=== PATIENT | female | born 1935 | race Caucasian/White ===

== ENCOUNTER 2016-11-16 18:44 | Observation (INO) ==
[2016-11-16 19:19] LABS: Basophils # 0.1 K/mcL (0.0-0.2); Basophils % 0.6 %; Eosinophils # 0.1 K/mcL (0.0-0.6); Eosinophils % 1.2 %; Hematocrit 38.5 % (35.3-44.9); Hemoglobin 12.5 g/dL (11.5-15.4); Immature Granulocytes % 1.2 % (0-4); Lymphocytes # 2.6 K/mcL (0.6-4.6); Lymphocytes % 26.5 %; Mean Corpuscular HGB Conc 32.5 g/dL (31.6-35.5); Mean Corpuscular Hemoglobin 28.9 pg (28.0-33.3); Mean Corpuscular Volume 88.9 fL (83.0-100.0); Mean Platelet Volume 9.1 fL (9.4-12.4); Monocytes # 0.6 K/mcL (0.0-1.3); Neutrophils # 6.2 K/mcL (1.6-8.9); Platelet Count 240 K/mcL (140-400); Red Blood Count 4.33 M/mcL (3.82-4.97); Red Cell Distribution Width 15.7 % (11.5-14.5); Segmented Neutrophils % 64.5 %
[2016-11-16 19:24] LABS: INR 1.4; Prothrombin Time 15.5 Seconds (9.4-12.1)
[2016-11-16 19:27] LABS: Activated Partial Thrombo Time 34.5 Seconds (26.0-36.0)
[2016-11-16] MEDS ORDERED: *HR* HYDROmorphone (PF) 1 MG/ML SYRINGE IVP ONE (19:27)
[2016-11-16] MEDS ORDERED: Ondansetron 4 MG/2 ML VIAL IVP ONE (19:27)
--- NOTE | 2016-11-16 19:33 | Emergency Department Note ---
Disposition Clinical Impression: Chest pain Disposition: Admitted As Inpatient Condition: Fair Time of Disposition: 23:27 Chest Pain HPI - General Chief Complaint: ED Chest Pain Stated Complaint: Chest Pain Time Seen by Provider: 11/16/16 19:05 Source: patient, family Mode of arrival: private vehicle Limitations: no limitations Vital Signs Reviewed: Yes Nursing Notes Reviewed: Yes - History of Present Illness HPI Narrative: 81-year-old female patient presents to the emergency department complaining of chest pain. Patient states that she has had intermittent chest pain for the last 2-3 days, however states that the discomfort became more severe within the last 3 hours. Patient describes her chest pain as tightness and heaviness. She also notes that she has been feeling increasingly weak over the last several days and has noted that she becomes short of breath with any exertion. She denies any fever, chills, nausea or vomiting. She does state that she has had similar chest pain in the past but nothing this severe. Currently she states that she is pain-free, however complains of back pain but this is a chronic issue for her. She denies any recent trauma, falls, head injury, loss of consciousness, dizziness or lightheadedness. Pt complaint: chest pain Onset (ago): hour(s) (3) Duration: intermittent, now resolved Onset: during rest, during exertion Pain Location: substernal Severity scale (1-10): 8 Pain Radiation: none Improves with: nothing Worsens with: nothing Associated symptoms: Reports: dyspnea. Denies: nausea, vomiting, diaphoresis, sense of impending doom Treatments prior to arrival chest pain: none - Related Data Home Medications Medication Instructions Recorded Confirmed Aclidinium [place] [Tudorza 1 puff IH BID 10/13/16 11/01/16 Pressair] Biotin 5 mg PO DAILY 10/13/16 11/01/16 Cholecalciferol (D-3) [Vitamin D] 2,000 unit PO DAILY 10/13/16 11/01/16 Digoxin [Lanoxin] 0.125 mg PO Q48H 10/13/16 11/01/16 Diltiazem CD (24hr) [Cardizem CD] 240 mg PO DAILY 10/13/16 11/01/16 Docusate [Colace] 200 mg PO DAILY 10/13/16 11/01/16 Esomeprazole Magnesium [Nexium] 40 mg PO DAILY 10/13/16 11/01/16 Ferrous Sulfate [Iron] 325 mg PO BID 10/13/16 11/01/16 Fluticasone Propionate Nasal 1 spray NS BID 10/13/16 11/01/16 [Flonase] Glimepiride [Amaryl] 1 mg PO QAM 10/13/16 11/01/16 Levalbuterol Tartrate [Xopenex Hfa] 2 puff IH Q6H PRN 10/13/16 11/01/16 Levothyroxine Sodium [Levo-T] 175 mcg PO DAILY 10/13/16 11/01/16 Lidocaine Patch [Lidoderm 5% patch] 1 patch TP DAILY PRN 10/13/16 11/01/16 Magnesium Oxide [Magnesium] 500 mg PO BID 10/13/16 11/01/16 Metoprolol Succinate 100 mg PO DAILY 10/13/16 11/01/16 Morphine Sulfate [Arymo ER] 30 mg PO Q12H PRN 10/13/16 11/01/16 Multivit-Min/FA/Lycopen/Lutein 1 tab PO DAILY 10/13/16 11/01/16 [Centrum Silver Tablet] OxyCODONE/APAP 5/325 [Percocet 1 tab PO DAILY PRN 10/13/16 11/01/16 5/325 MG] Potassium Chloride [K-Tab ER] 20 meq PO DAILY 10/13/16 11/01/16 Rivaroxaban [Xarelto] 20 mg PO DAILY 10/13/16 11/01/16 Rosuvastatin Calcium [Crestor] 5 mg PO DAILY 10/13/16 11/01/16 Sertraline [Zoloft] 100 mg PO DAILY 10/13/16 11/01/16 Spironolactone [Aldactone] 12.5 mg PO BID 10/13/16 11/01/16 Tizanidine HCl 2 - 4 mg PO TID PRN 10/13/16 11/01/16 Torsemide [Demadex] 40 mg PO QPM 10/13/16 11/01/16 Torsemide [Demadex] 60 mg PO QAM 10/13/16 11/01/16 Vitamin B Complex [B Complex] 1 tab PO DAILY 10/13/16 11/01/16 Previous Rx's Medication Instructions Recorded methylPREDNISolone [Medrol] 4 mg PO TAPER #21 tablet 11/01/16 Allergies Allergy/AdvReac Type Severity Reaction Status Date / Time aspirin [ASA] Allergy Mild Gastrointestinal Verified 11/01/16 19:47 Upset ciprofloxacin [From Cipro] Allergy Unknown Rash Verified 11/01/16 19:47 codeine Allergy Unknown Hives Verified 11/01/16 19:47 Penicillins Allergy Unknown Rash Verified 11/01/16 19:47 Sulfa (Sulfonamide Allergy Unknown Rash Verified 11/01/16 19:47 Antibiotics) tetanus and diphtheria Allergy Unknown Swelling Verified 11/01/16 19:47 toxoids of [Tetanus&Diphtheria Toxoid] Lip/Tongue/Throat doxycycline Allergy See Verified 11/01/16 19:47 Comments fluticasone furoate AdvReac Nausea Verified 11/01/16 19:47 [From Breo Ellipta] vilanterol AdvReac Nausea Verified 11/01/16 19:47 [From Breo Ellipta] All systems ED: reviewed and negative except as stated. Constitutional: Denies: fever, chills Cardiovascular: Reports: chest pain. Denies: palpitations Respiratory: Reports: dyspnea. Denies: cough, wheezes Gastrointestinal: Denies: abdominal pain, nausea, vomiting Musculoskeletal: Reports: back pain (Chronic). Denies: neck pain Integumentary: Denies: rash, abrasion, lesions Neurological: Denies: headache Psychiatric: Denies: anxiety, depression, suicidal thoughts, homicidal thoughts Endocrine: Reports: fatigue Chest Pain PMH - Past Medical History Medical history: Reports: arthritis, asthma, atrial fibrillation, CHF, diabetes , fibromyalgia, GERD, hyperlipidemia, hypertension, thyroid disease Surgical history: Reports: cholecystectomy Psychiatric history: Reports: depression TIRE AND LUBE TECHNICIAN history: Reports: no TIRE AND LUBE TECHNICIAN history - Social History Smoking Status: Never smoker Alcohol use: Reports: none Drug use: Reports: none Physical Exam - General Limitations: no limitations General appearance: alert, in no apparent distress - Head Head exam: atraumatic, normocephalic, normal inspection - Eye Eye exam: Present: normal appearance, PERRL - Neck Neck exam: Present: normal inspection, full ROM, trachea midline - Chest Chest inspection: Present: normal inspection, symmetric chest wall rise. Absent : tenderness - Respiratory Respiratory exam: Present: normal lung sounds bilaterally. Absent: respiratory distress - Cardiovascular Cardiovascular exam: Present: regular rate, normal rhythm, normal heart sounds - Abdominal Exam Abdominal exam: Present: soft, Non-Tender, normal bowel sounds - Extremities Exam Extremities exam: Present: normal inspection, full ROM, pedal edema (Mild, chronic and normal for patient.). Absent: tenderness - Expanded Lower Extremity Exam Gait: not tested/not observed - Back Exam Back exam: Present: normal inspection, full ROM - Neurological Exam Neurological exam: Present: alert, oriented X3 - Psychiatric Psychiatric exam: Present: normal affect, normal mood Course - Consultations Consultation #1: I discussed admission with the Hospitalist, Dr. Seo, he accepts the patient. Patient continues to deny any chest pain, however does state that she has back pain which is chronic and is requesting pain medication. Patient appears to be resting comfortably in no acute distress. Vital signs within normal limits. I informed the patient about admission to the hospital and we are currently awaiting transport. Vital Signs Temperature 98.3 F 11/16/16 18:55 Pulse Rate 93 11/16/16 18:55 Respiratory Rate 18 11/16/16 18:55 Blood Pressure 119/85 11/16/16 18:55 O2 Sat by Pulse Oximetry 95 11/16/16 18:55 Temperature 98.3 F 11/16/16 18:55 Pulse Rate 92 11/16/16 21:20 Respiratory Rate 16 11/16/16 21:20 Blood Pressure 98/64 11/16/16 21:20 O2 Sat by Pulse Oximetry 94 11/16/16 21:20 Oxygen Delivery Oxygen Delivery Room Air Chest Pain - Lab Data Result diagrams: 11/16/16 19:09 11/16/16 19:09 Lab Results 11/16/16 11/16/16 11/16/16 Range/Units 19:09 19:09 19:09 WBC 9.6 (4.3-11.1) K/mcL RBC 4.33 (3.82-4.97) M/mcL Hgb 12.5 (11.5-15.4) g/dL Hct 38.5 (35.3-44.9) % MCV 88.9 (83.0-100.0) fL MCH 28.9 (28.0-33.3) pg MCHC 32.5 (31.6-35.5) g/dL RDW 15.7 H (11.5-14.5) % Plt Count 240 (140-400) K/mcL MPV 9.1 L (9.4-12.4) fL Immature Gran % 1.2 (0-4) % Seg Neutrophils % 64.5 % Lymphocytes % 26.5 % Monocytes % 6.0 % Eosinophils % 1.2 % Basophils % 0.6 % Neutrophils # 6.2 (1.6-8.9) K/mcL Lymphocytes # 2.6 (0.6-4.6) K/mcL Monocytes # 0.6 (0.0-1.3) K/mcL Eosinophils # 0.1 (0.0-0.6) K/mcL Basophils # 0.1 (0.0-0.2) K/mcL PT 15.5 H (9.4-12.1) Seconds INR 1.4 APTT 34.5 (26.0-36.0) Seconds D-Dimer 738 H (0-500) ng/mLFEU Sodium (136-145) mEq/L Potassium (3.5-4.5) mEq/L Chloride (98-109) mEq/L Carbon Dioxide (19-29) mEq/L BUN (7-20) mg/dL Creatinine (0.57-1.11) mg/dL Est GFR ( Amer) (> 60) Est GFR (Non-Af Amer) (> 60) BUN/Creatinine Ratio (6-26) Glucose (70-99) mg/dL Calculated Osmolality (280-300) Calcium (8.6-10.8) mg/dL Total Bilirubin (0.2-1.2) mg/dL AST (5-34) Units/L ALT (0-55) Units/L Alkaline Phosphatase (38-126) Units/L Troponin I 0.00 (0-0.03) ng/mL B-Natriuretic Peptide (0-100) pg/mL Serum Total Protein (6.0-8.3) g/dL Albumin (3.5-5.0) g/dL Globulin (2.4-3.5) g/dL Albumin/Globulin Ratio (1.1-2.2) Digoxin (0.8-2.0) ng/mL 11/16/16 11/16/16 Range/Units 19:09 19:09 WBC (4.3-11.1) K/mcL RBC (3.82-4.97) M/mcL Hgb (11.5-15.4) g/dL Hct (35.3-44.9) % MCV (83.0-100.0) fL MCH (28.0-33.3) pg MCHC (31.6-35.5) g/dL RDW (11.5-14.5) % Plt Count (140-400) K/mcL MPV (9.4-12.4) fL Immature Gran % (0-4) % Seg Neutrophils % % Lymphocytes % % Monocytes % % Eosinophils % % Basophils % % Neutrophils # (1.6-8.9) K/mcL Lymphocytes # (0.6-4.6) K/mcL Monocytes # (0.0-1.3) K/mcL Eosinophils # (0.0-0.6) K/mcL Basophils # (0.0-0.2) K/mcL PT (9.4-12.1) Seconds INR APTT (26.0-36.0) Seconds D-Dimer (0-500) ng/mLFEU Sodium 139 (136-145) mEq/L Potassium 3.4 L (3.5-4.5) mEq/L Chloride 99 (98-109) mEq/L Carbon Dioxide 29 (19-29) mEq/L BUN 15 (7-20) mg/dL Creatinine 1.19 H (0.57-1.11) mg/dL Est GFR ( Amer) 53 L (> 60) Est GFR (Non-Af Amer) 44 L (> 60) BUN/Creatinine Ratio 13 (6-26) Glucose 113 H (70-99) mg/dL Calculated Osmolality 290 (280-300) Calcium 9.5 (8.6-10.8) mg/dL Total Bilirubin 0.4 (0.2-1.2) mg/dL AST 34 (5-34) Units/L ALT 34 (0-55) Units/L Alkaline Phosphatase 140 H (38-126) Units/L Troponin I (0-0.03) ng/mL B-Natriuretic Peptide 129 H (0-100) pg/mL Serum Total Protein 7.2 (6.0-8.3) g/dL Albumin 3.7 (3.5-5.0) g/dL Globulin 3.5 (2.4-3.5) g/dL Albumin/Globulin Ratio 1.1 (1.1-2.2) Digoxin 0.4 L (0.8-2.0) ng/mL Heart Score - Score History: Moderately Suspicious EKG: Normal Age: Greater than 65 Risk Factors: Equal/Greater than 3 risk factor or history of atherosclerotic disease Troponin: Less than normal limit HEART Score Total: 5 Attestation Statement - Attestation Attestation: I examined this patient and my medical decision-making was reviewed with the STULL INSTALLER/PA/Advanced Practice Nurse/Resident Physician. I agree with the documented findings, disposition and treatment plan as described except to the extent set forth below. [id number] time provided Patient complains of chest pain. Labs reviewed by me. EKG reviewed by me. D- dimer elevated age adjusted his within acceptable range. She appears in no acute distress on exam. Family at bedside
[2016-11-16] MEDS ORDERED: Nitroglycerin 0.4 MG TAB.SUBL SL PRN (19:35)
[2016-11-16] MEDS ORDERED: Aspirin 81 MG TAB.CHEW PO ONE (19:36)
[2016-11-16 20:02] LABS: Calcium 9.5 mg/dL (8.6-10.8); Potassium 3.4 mEq/L (3.5-4.5)
[2016-11-16 20:16] LABS: Albumin 3.7 g/dL (3.5-5.0); Albumin/Globulin Ratio 1.1 (1.1-2.2); Bilirubin,Total 0.4 mg/dL (0.2-1.2); Globulin 3.5 g/dL (2.4-3.5); Total Protein 7.2 g/dL (6.0-8.3)
[2016-11-16 21:12] LABS: Digoxin 0.4 ng/mL (0.8-2.0)
[2016-11-16] MEDS ORDERED: *HR* HYDROmorphone 2 MG/ML SYRINGE IVP ONE (23:17)
[2016-11-17] MEDS ORDERED: Naloxone 0.4 MG/ML INJ IVP PRN (01:54)
[2016-11-17] MEDS ORDERED: Levalbuterol 1 PUFF INHALER IH PRN (01:56)
[2016-11-17] MEDS ORDERED: *HR* OxyCODONE/APAP 5/325 TABLET PO PRN (01:56)
[2016-11-17] MEDS ORDERED: *HR* Digoxin 0.125 MG TABLET PO SCH (02:00)
[2016-11-17] MEDS ORDERED: *HR* Dextrose 50 % in Water (Syg) 50 ML SYRINGE IVP PRN (02:08)
[2016-11-17] MEDS ORDERED: D5% in Water 1,000 ML IVC PRN (02:08)
[2016-11-17] MEDS ORDERED: Dextrose Gel 15 GM PO PRN ×2 (02:08)
--- NOTE | 2016-11-17 02:10 | Internal Med History&Physical ---
Date of Encounter: 11/17/16 Time of Encounter: 02:09 Assessment and Plan (1) Chest pain Current visit: Yes Status: Acute Age adjusted d-dimer is in the normal range; troponin is negative, and CXR showed no acute process. Trend troponins - if negative; pharmacological stress test. Qualifiers: Chest pain type: unspecified Qualified Code(s): R07.9 - Chest pain, unspecified (2) Atrial fibrillation Current visit: Yes Status: Chronic Rate controlled. Continue anticoagulation with xarelto Qualifiers: Atrial fibrillation type: unspecified Qualified Code(s): I48.91 - Unspecified atrial fibrillation (3) Diabetes mellitus Current visit: Yes Status: Acute Start sliding scale insulin Qualifiers: Diabetes mellitus type: type 2 Diabetes mellitus complication status: with unspecified complications Diabetes mellitus mcc insulin use: without exterminator termite use Qualified Code(s): E11.8 - Type 2 diabetes mellitus with unspecified complications (4) Hypothyroidism Current visit: Yes Status: Chronic Continue synthroid Qualifiers: Hypothyroidism type: unspecified Qualified Code(s): E03.9 - Hypothyroidism , unspecified (5) Hypertension Current visit: Yes Status: Chronic Continue home medications Qualifiers: Hypertension type: essential hypertension Qualified Code(s): I10 - Essential (primary) hypertension (6) Chronic pain Current visit: Yes Status: Chronic Continue home medications Qualifiers: Chronic pain type: chronic pain syndrome Qualified Code(s): G89.4 - Chronic pain syndrome Internal Medicine - H&P: HPI Chief complaint: chest pain Admitted From: Emergency Dept Plans for Post Hospital Care: Home History of present illness: Ms. Hernandez is a 81 year old female With h/o asthma / COPD, atrial fibrillation on anticoagulation with xarelto, CHF, diabetes, fibromyalgia, GERD, hyperlipidemia, hypertension, hypothyroidism, chronic back pain - presents to the emergency department with history of intermittent substernal chest pain for about 4 days. Pain feels like heaviness, unrelated to exertion and goes to the back. She reports nausea but no vomiting. She denies shortness of breath, cough, expectoration, fever, chills, abdominal pain, dysuria, hematuria or changes in bowel habits. She reports recent history of shingles on the left lumbar area, which is causing pain. She is evaluated in the emergency department age adjusted d-dimer is in the normal range; troponin is negative, and CXR showed no acute process. She is admitted to the hospitalist service for further management. Past Med Surg Social Fam HX - Past Medical History Medical history: arthritis, asthma, atrial fibrillation, CHF, diabetes, fibromyalgia, GERD, hyperlipidemia, hypertension, thyroid disease Psychiatric history: depression - Past Surgical History Surgical History: cholecystectomy - Social History Smoking Status: Never smoker Smokeless Tobacco Status: No Alcohol use: none Drug use: none - Family History Father Adopted: [place]: [place] Family Member Ethnicity: Non- Living Status: Age at : 73 Cause of : HEART PROBLEMS Hx Family Cardiac Disorders: Yes Hx Family Respiratory Disorders: No Hx Family Cancer: No Hx Family GI Disorders: No Hx Family Genitourinary Disorders: No Hx Family Endocrine Disorder: Yes (DM) Hx Family Musculoskeletal Disorders: No Hx Family Neuromuscular Disorders: No Hx Family Neurologic Disorders: No Hx Family HEENT Disorders: No Hx Family Autoimmune Disorders: No Hx Family Reproductive Disorders: No Hx Family Psychosocial Disorders: No Hx Family Medical Disorders: No Internal Medicine - H&P: Meds Aclidinium [place] [Tudorza Pressair] 1 puff IH BID 10/13/16 [History] Biotin 5 mg PO DAILY 10/13/16 [History] Cholecalciferol (D-3) [Vitamin D] 2,000 unit PO DAILY 10/13/16 [History] Digoxin [Lanoxin] 0.125 mg PO Q48H 10/13/16 [History] Diltiazem CD (24hr) [Cardizem CD] 240 mg PO DAILY 10/13/16 [History] Docusate [Colace] 100 mg PO BID 10/13/16 [History] Esomeprazole Magnesium [Nexium] 40 mg PO DAILY 10/13/16 [History] Ferrous Sulfate [Iron] 325 mg PO BID 10/13/16 [History] Fluticasone Propionate Nasal [Flonase] 1 spray NS BID 10/13/16 [History] Glimepiride [Amaryl] 1 mg PO QAM 10/13/16 [History] Levalbuterol Tartrate [Xopenex Hfa] 2 puff IH Q6H PRN 10/13/16 [History] Levothyroxine Sodium [Levo-T] 175 mcg PO DAILY 10/13/16 [History] Lidocaine Patch [Lidoderm 5% patch] 1 patch TP DAILY PRN 10/13/16 [History] Magnesium Oxide [Magnesium] 500 mg PO BID 10/13/16 [History] Metoprolol Succinate 100 mg PO DAILY 10/13/16 [History] Morphine Sulfate [Arymo ER] 30 mg PO Q12H PRN 10/13/16 [History] Multivit-Min/FA/Lycopen/Lutein [Centrum Silver Tablet] 1 tab PO DAILY 10/13/16 [ History] OxyCODONE/APAP 5/325 [Percocet 5/325 MG] 1 tab PO DAILY PRN 10/13/16 [History] Potassium Chloride [K-Tab ER] 20 meq PO TID 10/13/16 [History] Rivaroxaban [Xarelto] 20 mg PO DAILY 10/13/16 [History] Rosuvastatin Calcium [Crestor] 5 mg PO DAILY 10/13/16 [History] Sertraline [Zoloft] 100 mg PO DAILY 10/13/16 [History] Spironolactone [Aldactone] 12.5 mg PO BID 10/13/16 [History] Torsemide [Demadex] 40 mg PO QPM 10/13/16 [History] Torsemide [Demadex] 60 mg PO QAM 10/13/16 [History] Vitamin B Complex [B Complex] 1 tab PO DAILY 10/13/16 [History] Allergies aspirin [ASA] Allergy (Mild, Verified 11/01/16 19:47) Gastrointestinal Upset ciprofloxacin [From Cipro] Allergy (Unknown, Verified 11/01/16 19:47) Rash codeine Allergy (Unknown, Verified 11/01/16 19:47) Hives Penicillins Allergy (Unknown, Verified 11/01/16 19:47) Rash Sulfa (Sulfonamide Antibiotics) Allergy (Unknown, Verified 11/01/16 19:47) Rash tetanus and diphtheria toxoids [Tetanus&Diphtheria Toxoid] Allergy (Unknown, Verified 11/01/16 19:47) Swelling of Lip/Tongue/Throat doxycycline Allergy (Verified 11/01/16 19:47) See Comments fluticasone furoate [From Breo Ellipta] Adverse Reaction (Verified 11/01/16 19: 47) Nausea vilanterol [From Breo Ellipta] Adverse Reaction (Verified 11/01/16 19:47) Nausea All Systems PM: A 10-system review of systems was performed and is negative for pertinent findings except as documented above in the HPI. - Constitutional Vitals: Temp Pulse Resp BP Pulse Ox 98.3 F 82 16 106/64 92 11/17/16 00:25 11/17/16 00:25 11/17/16 00:25 11/17/16 00:25 11/17/16 00:25 Exam: General: Not in acute distress at the time of my evaluation HEENT: Oral mucosa is moist. No conjunctival palor or scleral icterus Neck: No obvious neck swellings Lungs: Clear to auscultation Cardiac: Irregular rhythm. No significant murmurs Abdomen: obese, non tender. Bowel sounds present Genitourinary: No diaz catheter Neurological: Alert and oriented. No gross localizing deficits Psych: Not aggressive or agitated Extremities: Mild leg edema Skin: No generalized rash Internal Med - H&P Results - Labs CBC & Chem 7: 11/16/16 19:09 11/16/16 19:09 - EKG Data -: EKG Interpreted by Myself - EKG Data EKG comments: Atrial fibrillation - rate controlled; RBBB 11/17/16 05:29 - Impressions ITS Impressions Chest X-Ray 11/16/16 18:58 IMPRESSION: No acute process. Redemonstration of a large hiatal hernia. This was also seen on a chest CT from 09/13/2014. D/ / 11/16/2016 21:29:51 Enma Stone MD / eli Interpreting Provider: Enma Stone MD - VTE Reasons for not Prescribing Prophylaxis: Not indicated-Anticoagulated or INR therapeutic
[2016-11-17 03:35] LABS: Chol/HDL Ratio 5.1 (0-4.9); Magnesium 1.8 mg/dL (1.6-2.6)
[2016-11-17] MEDS ORDERED: Regadenoson 0.4 MG/5 ML SYRINGE IVP ONE (06:10)
[2016-11-17] MEDS ORDERED: *HR* Rivaroxaban 10 MG TABLET PO SCH (09:00)
[2016-11-17] MEDS: Insulin LISPRO 300 UNITS/3 ML VIAL SQ SCH ×3 (09:45→16:22)
[2016-11-17] MEDS: Torsemide 20 MG TABLET PO SCH (09:47)
[2016-11-17] MEDS: Metoprolol XL (24 HR) Succ 50 MG TAB.ER.24H PO SCH (09:47)
[2016-11-17] MEDS: Spironolactone 25 MG TABLET PO SCH ×2 (09:47→20:23)
[2016-11-17] MEDS: Magnesium Oxide 400 MG TABLET PO SCH ×2 (09:47→20:23)
[2016-11-17] MEDS: Fluticasone Propionate Nasal 50 MCG/SPRAY BOTTLE NS SCH ×2 (09:48→20:23)
[2016-11-17] MEDS: Vitamin B Complex/Vit C/Vit E 1 EACH TABLET PO SCH (09:48)
[2016-11-17] MEDS: Multivit/Ca/Min/Fe/FA 1 TAB TABLET PO SCH (09:48)
[2016-11-17] MEDS: Diltiazem CD (24hr) 240 MG CAPSULE PO SCH (09:48)
--- NOTE | 2016-11-17 11:28 | Internal Med Progress Note ---
Date of Encounter: 11/17/16 Time of Encounter: 09:30 - Assessment and plan (1) Chest pain Current Visit: Yes Status: Acute Assessment and plan: Patient describes heavy substernal chest pain that is very intermittent for roughly 4 days prior to admission. Currently chest pain-free, but does report continued lower back pain. She does describe her current chest/epigastric pain that radiates to her back similar to prior episodes of pancreatitis that she has had in the past. EKG shows no acute changes, trops x2 have been negative so far. Patient appears hemodynamically stable. Patient underwent 1st part of cardiac stress test this morning, this will be a 2 day test NPO after midnight Will obtain lipase continue to monitor via cardiac telemetry Qualifiers: Chest pain type: unspecified Qualified Code(s): R07.9 - Chest pain, unspecified (2) Atrial fibrillation Current Visit: Yes Status: Chronic Assessment and plan: Heart rate-controlled currently, no rapid ventricular response Continue patient home medications, including: Digoxin 0.125 mg by mouth every 48 hours Xarelto 20 mg by mouth daily Patient on diltiazem and metoprolol as below Qualifiers: Atrial fibrillation type: unspecified Qualified Code(s): I48.91 - Unspecified atrial fibrillation (3) Diabetes mellitus Current Visit: Yes Status: Acute Assessment and plan: Hold patient oral diabetic medications Start patient on low-dose insulin sliding scale Qualifiers: Diabetes mellitus type: type 2 Diabetes mellitus complication status: with unspecified complications Diabetes mellitus mcfp insulin use: without gaggerman use Qualified Code(s): E11.8 - Type 2 diabetes mellitus with unspecified complications (4) Hypothyroidism Current Visit: Yes Status: Chronic Assessment and plan: Continue home dose of levothyroxine of 175 g daily Qualifiers: Hypothyroidism type: unspecified Qualified Code(s): E03.9 - Hypothyroidism , unspecified (5) Chronic pain Current Visit: Yes Status: Chronic Assessment and plan: Continue home medications as below, including: Lidoderm patches By mouth morphine 30 mg every 12 hours when necessary Percocet 5/325 one tab by mouth daily when necessary Qualifiers: Chronic pain type: chronic pain syndrome Qualified Code(s): G89.4 - Chronic pain syndrome (6) Hypertension Current Visit: Yes Status: Chronic Assessment and plan: Continue home medications as below, including: Diltiazem 240 mg daily Metoprolol succinate 100 mg daily Spironolactone 12.5 mg by mouth twice a day Qualifiers: Hypertension type: essential hypertension Qualified Code(s): I10 - Essential (primary) hypertension (7) DVT prophylaxis Current Visit: Yes Status: Acute Assessment and plan: Continue home Xarelto - Subjective Interval history: Patient seen after having her stress test this morning, she denies having any chest pain at this time. She does report that she is having significant back pain, both in her spine and in her low left side, where she was recently diagnosed with shingles. She reports that the chest pain that she was heavy was a heavy feeling in the center of her chest and epigastric region that would radiate to her back. She reports that it was a similar sensation to when she had pacreatitis previously. She denies having any nausea/vomiting or fever, she does report having chills. - Constitutional Vitals: Temp Pulse Resp BP Pulse Ox 98.5 F 80 17 116/70 94 11/17/16 11:19 11/17/16 11:19 11/17/16 11:19 11/17/16 11:19 11/17/16 11:19 Exam: General: Cooperative, pleasant, no acute distress, alert and oriented 3, answers questions appropriately HEENT: Normocephalic, atraumatic, neck supple, sclera anicteric, EOMI, oral mucosa moist, no orophargeal erythema or exudates Respiratory: No accessory muscle usage, clear to auscultation bilaterally, no wheezes/rhonchi/rales appreciated Cardiovascular: Irregular rhythm, no murmurs/rubs/gallops/clicks appreciated, substernal pain reproducible with palpation GI/abdominal: Nondistended, mild epigastric tenderness, normal bowel sounds, no peritoneal signs Extremities: No calf tenderness, noncyanotic, no pedal edema appreciated, warm, lower extremity pulses palpable and symmetrical Neurological: Alert and oriented 3, no facial droop, no focal deficits Skin: Dry, intact, rash from healing shingles in distribution in lower lumbar area on left Internal Medicine: Result - Labs CBC & Chem 7: 11/16/16 19:09 11/16/16 19:09 Labs: Cardiac Enzymes 11/17/16 Range/Units 02:58 Troponin I 0.02 (0-0.03) ng/mL - ABG Interpretation ABG results: PT/INR, D-dimer PT 15.5 Seconds (9.4-12.1) H 11/16/16 19:09 D-Dimer 738 ng/mLFEU (0-500) H 11/16/16 19:09 - VTE Reasons for not Prescribing Prophylaxis: Not indicated-Anticoagulated or INR therapeutic Consult Discharge Plan - Plan Referrals: Clifton Ferro DO [Primary Care Provider] -
[2016-11-17] MEDS: *HR* Morphine Sulfate SR (12 HR) 30 MG TABLET.ER PO PRN (11:42)
[2016-11-17] MEDS ORDERED: NON-FORMULARY MEDICATION 1 EACH EACH TP PRN (15:17)
[2016-11-17] MEDS ORDERED: Torsemide 20 MG TABLET PO SCH (17:00)
--- NOTE | 2016-11-17 17:57 | Electrocardiograph Report ---
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
[2016-11-17] MEDS ORDERED: Insulin LISPRO 300 UNITS/3 ML VIAL SQ SCH (21:00)
[2016-11-18] MEDS: *HR* Morphine Sulfate SR (12 HR) 30 MG TABLET.ER PO PRN ×2 (03:03→15:29)
[2016-11-18 05:31] LABS: Calcium 9.2 mg/dL (8.6-10.8); Potassium 3.1 mEq/L (3.5-4.5)
[2016-11-18] MEDS: Insulin LISPRO 300 UNITS/3 ML VIAL SQ SCH ×2 (08:54→11:55)
[2016-11-18] MEDS: Torsemide 20 MG TABLET PO SCH (09:13)
[2016-11-18] MEDS: Diltiazem CD (24hr) 240 MG CAPSULE PO SCH (09:13)
[2016-11-18] MEDS: Spironolactone 25 MG TABLET PO SCH (09:13)
[2016-11-18] MEDS: Metoprolol XL (24 HR) Succ 50 MG TAB.ER.24H PO SCH (09:15)
[2016-11-18] MEDS: Vitamin B Complex/Vit C/Vit E 1 EACH TABLET PO SCH (09:15)
[2016-11-18] MEDS: Magnesium Oxide 400 MG TABLET PO SCH (09:15)
[2016-11-18] MEDS: Multivit/Ca/Min/Fe/FA 1 TAB TABLET PO SCH (09:15)
[2016-11-18] MEDS: Fluticasone Propionate Nasal 50 MCG/SPRAY BOTTLE NS SCH (09:15)
--- NOTE | 2016-11-18 12:06 | Nuclear Medicine Stress Report ---
Regadenoson Nuclear 2 Name: Germania Hernandez Date of Study: 11/17/2016 Date: 1935 Ht: 61.0 in Medical Record#: [id number] Age: 81 Wt: 203.0 lb Gender: Female Order #: [id number] Location: [facility] Room: [facility] Supervising Provider: Alma Finch CNP Reading Physician: Edinson Mariano MD, [facility] Ordering Physician: Mary Barkley CNP Primary Care Physician: Clifton Ferro DO Stress Technologist: Hever Mazariegos CRT Cloth Coverer: Ludwig Hernandez Indications: Chest Pain Impression: Patient was in atrial fibrillation throughout the examination. Gated LVEF > 70%. Perfusion imaging was negative for ischemia or infarct. History: Hypertension Diabetes Hypercholesteremia Stress Test Summary: Stress Test Type: Pharmacologic Baseline Information: Initial Heart Rate: 84 Blood Pressure: 122/70 Stress Information: Test Terminated Due to (primary): As per protocol Maximum Blood Pressure: 134/68 Maximum Heart Rate: 97 Percent Maximum Heart Rate Achieved: 70 Double Product: [id number] Symptoms: No chest symptoms Nuclear Summary: SPECT myocardial perfusion imaging using Tc99m Sestamibi given intravenously was performed at rest and following cardiac stress testing. The resting images were obtained following initial dose of 34.5 mCi. Following stress an additional dose of 32.3 mCi was given at peak exercise or 30 seconds post regadenoson infusion. Findings: Stress Note * Resting ECG demonstrated atrial fibrillation. * Patient was in atrial fibrillation throughout the examination. * Patient had no chest pain during stress. * No significant ECG changes with regadenoson. Hemodynamic responses * Normal hemodynamic responses to pharmacologic stress. Study Quality * Study quality is good. Gated EF > 70% * Gated LVEF > 70%. Left Ventricle * The left ventricle is not dilated. * Normal Segmental Perfusion in rest. * Normal segmental perfusion in stress. TID * No evidence of transient ischemic dilatation. Updated by Edinson Mariano MD, [facility] on 11/18/2016 12:02:12 PM electronically signed on 11/18/2016 12:02:35 PM with status of Final
[2016-11-18 15:27] VITALS: BP 126/66
--- NOTE | 2016-11-18 16:46 | Discharge Summary ---
Date of Encounter: 11/18/16 Time of Encounter: 16:43 - Discharge Diagnosis (1) Chest pain Priority: Primary Status: Acute Comments: Stress test was negative Qualifiers: Chest pain type: unspecified Qualified Code(s): R07.9 - Chest pain, unspecified (2) Atrial fibrillation Priority: Secondary Status: Chronic Qualifiers: Atrial fibrillation type: unspecified Qualified Code(s): I48.91 - Unspecified atrial fibrillation (3) Diabetes mellitus Priority: Secondary Status: Acute Qualifiers: Diabetes mellitus type: type 2 Diabetes mellitus complication status: with unspecified complications Diabetes mellitus remote computer terminal operator insulin use: without remote computer terminal operator use Qualified Code(s): E11.8 - Type 2 diabetes mellitus with unspecified complications (4) Hypothyroidism Priority: Secondary Status: Chronic Qualifiers: Hypothyroidism type: unspecified Qualified Code(s): E03.9 - Hypothyroidism , unspecified (5) Hypertension Priority: Secondary Status: Chronic Qualifiers: Hypertension type: essential hypertension Qualified Code(s): I10 - Essential (primary) hypertension (6) Shingles Priority: Secondary Status: Acute Comments: Continue morphine and Percocet as needed as the patient could not tolerate Lyrica, was not able to tolerate gabapentin in the past and prefers not to try amitriptyline due to the side effects Qualifiers: Herpes zoster complications: without complications Qualified Code(s): B02.9 - Zoster without complications - Discharge Medications Home Medications: Aclidinium [place] [Tudorza Pressair] 1 puff IH BID 10/13/16 [History] Biotin 5 mg PO DAILY 10/13/16 [History] Cholecalciferol (D-3) [Vitamin D] 2,000 unit PO DAILY 10/13/16 [History] Digoxin [Lanoxin] 0.125 mg PO Q48H 10/13/16 [History] Diltiazem CD (24hr) [Cardizem CD] 240 mg PO DAILY 10/13/16 [History] Docusate [Colace] 100 mg PO BID 10/13/16 [History] Esomeprazole Magnesium [Nexium] 40 mg PO DAILY 10/13/16 [History] Ferrous Sulfate [Iron] 325 mg PO BID 10/13/16 [History] Fluticasone Propionate Nasal [Flonase] 1 spray NS BID 10/13/16 [History] Glimepiride [Amaryl] 1 mg PO QAM 10/13/16 [History] Levalbuterol Tartrate [Xopenex Hfa] 2 puff IH Q6H PRN 10/13/16 [History] Levothyroxine Sodium [Levo-T] 175 mcg PO DAILY 10/13/16 [History] Lidocaine Patch [Lidoderm 5% patch] 1 patch TP DAILY PRN 10/13/16 [History] Magnesium Oxide [Magnesium] 500 mg PO BID 10/13/16 [History] Metoprolol Succinate 100 mg PO DAILY 10/13/16 [History] Morphine Sulfate [Arymo ER] 30 mg PO Q12H PRN 10/13/16 [History] Multivit-Min/FA/Lycopen/Lutein [Centrum Silver Tablet] 1 tab PO DAILY 10/13/16 [ History] OxyCODONE/APAP 5/325 [Percocet 5/325 MG] 1 tab PO DAILY PRN 10/13/16 [History] Potassium Chloride [K-Tab ER] 20 meq PO TID 10/13/16 [History] Rivaroxaban [Xarelto] 20 mg PO DAILY 10/13/16 [History] Rosuvastatin Calcium [Crestor] 5 mg PO DAILY 10/13/16 [History] Sertraline [Zoloft] 100 mg PO DAILY 10/13/16 [History] Spironolactone [Aldactone] 12.5 mg PO BID 10/13/16 [History] Torsemide [Demadex] 40 mg PO QPM 10/13/16 [History] Torsemide [Demadex] 60 mg PO QAM 10/13/16 [History] Vitamin B Complex [B Complex] 1 tab PO DAILY 10/13/16 [History] Lidocaine 1 appl TP AD 11/17/16 [History] Allergies/Adverse Reactions: Allergies aspirin [ASA] Allergy (Mild, Verified 11/01/16 19:47) Gastrointestinal Upset ciprofloxacin [From Cipro] Allergy (Unknown, Verified 11/01/16 19:47) Rash codeine Allergy (Unknown, Verified 11/01/16 19:47) Hives Penicillins Allergy (Unknown, Verified 11/01/16 19:47) Rash Sulfa (Sulfonamide Antibiotics) Allergy (Unknown, Verified 11/01/16 19:47) Rash tetanus and diphtheria toxoids [Tetanus&Diphtheria Toxoid] Allergy (Unknown, Verified 11/01/16 19:47) Swelling of Lip/Tongue/Throat doxycycline Allergy (Verified 11/01/16 19:47) See Comments fluticasone furoate [From Breo Ellipta] Adverse Reaction (Verified 11/01/16 19: 47) Nausea vilanterol [From Breo Ellipta] Adverse Reaction (Verified 11/01/16 19:47) Nausea Procedures/tests Complete & Pending: Procedures Performed prior 72 hours Category Date Time Status NM vinod perf SPECT multi [NM] Routine Exams 11/17/16 01:56 Taken SP pharm nuclear stress Routine Y 11/17/16 07:00 Completed Date of admission: 11/16/16 22:28 Primary care physician: Clifton Ferro DO - Patient Status Disposition: Home, Self-Care Condition: Fair Overall status at discharge: patient is back to baseline - Discharge Instructions Follow Up With: Clifton Ferro DO [Primary Care Provider] - 11/19/16 1:15 pm Additional Instructions: Follow with primary care physician within the next 7 days - Diet and Activity Activity: increase activity as tolerated Diet: diabetic diet Hospital course: Ms. 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 Pain felt like heaviness, unrelated to exertion and goes to the back. She reported nausea but no vomiting. She denied shortness of breath, cough, expectoration, fever, chills, abdominal pain, dysuria, hematuria or changes in bowel habits. She reported recent history of shingles on the left lumbar area, which is causing pain. CXR showed no acute process. The patient underwent a 2 day stress test which was negative for any ischemia. Troponins have been negative. Safe to be discharged home - Time Spent with Patient Total time spent providing and/or coordinating discharge services: Greater than 30 minutes (40 min) - Constitutional Vitals: Temp Pulse Resp BP Pulse Ox 97.6 F 100 18 126/66 96 11/18/16 15:21 11/18/16 15:21 11/18/16 15:21 11/18/16 15:21 11/18/16 15:21 General appearance: Present: A&O X 3 - Head Head exam: Present: atraumatic, normocephalic - Eye Eye exam: Present: PERRL, conjuntiva pink, sclera anicteric Pupils: Present: PERRL - Neck Neck exam general surgery: Present: supple, trachea midline. Absent: lymphadenopathy - Respiratory Respiratory exam: Present: CTAB. Absent: accessory muscle use, rales, rhonchi, wheezes - Cardiovascular Cardiovascular exam: Present: RRR, +S1, +S2. Absent: diastolic murmur, gallop, rubs, systolic murmur - GI/Abdominal GI/Abdominal exam: Present: normal bowel sounds, soft, no peritoneal signs. Absent: distended, tenderness - Extremities Exam Extremities exam: Present: warm, radial pulses palpable and symetrical. Absent : calf tenderness, cyanotic, pedal edema - Neurological Exam Neurological exam: Present: CN II-XII intact, oriented X3, no focal deficits. Absent: pronater drift, facial droop, speech deficit - Skin Skin exam: Present: dry. Absent: intact (Left lumbothoracic lesions compatible with shingles) - VTE Reasons for not Prescribing Prophylaxis: Not indicated-Anticoagulated or INR therapeutic
[2016-11-18] MEDS ORDERED: *HR* Rivaroxaban 15 MG TABLET PO SCH (17:00)
== END 2016-11-18 17:57 | disposition home or self-care (01) ==
LOC: EMEROO 18:44 → 3BNU 18:44 → SUATTDRO 22:28 → 3BNU 11-17 00:05
PROVIDERS: ADMIT Internal Medicine; ATTEND Internal Medicine

== ENCOUNTER 2021-12-12 22:13 | Inpatient (IN) ==
[2021-12-13] MEDS ORDERED: Dextrose Gel 15 GM/37.5 ML TUBE PO PRN ×2 (04:05)
[2021-12-13] MEDS ORDERED: D5% in Water 1,000 ML IVC PRN (04:05)
[2021-12-13] MEDS ORDERED: *HR* Dextrose 50 % in Water (Syg) 50 ML SYRINGE IVP PRN (04:05)
[2021-12-13] MEDS ORDERED: Naloxone 0.4 MG/ML INJ IVP PRN (04:16)
[2021-12-13 05:24] LABS: Hematocrit 21.6 % (35.3-44.9); Hemoglobin 6.5 g/dL (11.5-15.4); Mean Corpuscular HGB Conc 30.1 g/dL (31.6-35.5); Mean Corpuscular Hemoglobin 29.1 pg (28.0-33.3); Mean Corpuscular Volume 96.9 fL (83.0-100.0); Platelet Count 218 K/mcL (140-400); Red Blood Count 2.23 M/mcL (3.82-4.97); Red Cell Distribution Width 15.9 % (11.5-14.5); White Blood Count 4.3 K/mcL (4.3-11.1)
[2021-12-13] MEDS: Insulin LISPRO 300 UNITS/3 ML VIAL SUBQ SCH ×5 (05:28→20:44)
[2021-12-13 05:34] LABS: INR 1.3; Prothrombin Time 14.4 Seconds (9.4-12.1)
[2021-12-13 05:43] LABS: Activated Partial Thrombo Time 33.1 Seconds (26.0-36.0); BUN/Creatinine Ratio 24 (6-26); Blood Urea Nitrogen 44 mg/dL (8-23); Calcium 8.6 mg/dL (8.6-10.3); Carbon Dioxide 32 mEq/L (23-29); Chloride 102 mEq/L (98-107); Glucose 110 mg/dL (70-105); Osmolality,Calculated 304 (280-300); Potassium 3.7 mEq/L (3.5-5.1); Sodium 141 mEq/L (136-145); eGFR For African Americans 31 (> 60); eGFR For Non-African Americans 26 (> 60)
[2021-12-13] MEDS: Acetaminophen 325 MG TABLET PO PRN ×2 (06:07→18:52)
[2021-12-13 06:15] LABS: Folate > 22.3 ng/mL (3.0-16.0); Vitamin B12 > 1500 pg/mL (250-1100)
[2021-12-13 08:46] LABS: % Iron Saturation 13 % (15-50); Chol/HDL Ratio 3.7 (0-4.9); Cholesterol 99 mg/dL (< 200); HDL Cholesterol 27 mg/dL (40-59); Iron 34 mcg/dL (50-170); LDL Cholesterol,Calculated 45 mg/dL (< 100); Magnesium 2.2 mg/dL (1.6-2.6); Transferrin 190 mg/dL (203-362); Triglycerides 137 mg/dL (< 150)
[2021-12-13 08:47] LABS: Troponin I < 0.03 ng/mL (< 0.04)
[2021-12-13 09:00] LABS: Thyroid Stimulating Hormone 1.609 mcIU/mL (0.340-5.600)
[2021-12-13 09:06] LABS: Ferritin 105 ng/mL (10-120)
[2021-12-13] MEDS: Torsemide 20 MG TABLET PO SCH ×2 (09:59→17:48)
[2021-12-13] MEDS: Metoprolol XL (24 HR) Succ 50 MG TAB.ER.24H PO SCH ×2 (10:00→21:52)
[2021-12-13] MEDS: Sacubitril/Valsartan 49/51 MG 1 TABLET PO SCH ×2 (10:00→21:51)
[2021-12-13 10:11] LABS: Estimated Average Glucose 103 mg/dl; Hemoglobin A1C 5.2 %
[2021-12-13] MEDS: Budesonide/Formoterol 160/4.5 1 PUFF INH IH SCH ×2 (10:20→22:04)
[2021-12-13] MEDS: Levalbuterol Neb 1.25 MG/3 ML IH SCH ×3 (10:20→22:03)
[2021-12-13] MEDS: cefTRIAXone 1,000 MG in 0.9 % Sodium Chloride Mini Bag 100 ML IVPB SCH (10:32)
[2021-12-13] MEDS: Aspirin Enteric Coated 81 MG Tablet PO SCH (10:48)
[2021-12-13] MEDS: *HR* Digoxin 0.125 MG TABLET PO SCH (10:49)
[2021-12-13] MEDS ORDERED: *HR* Rivaroxaban 10 MG TABLET PO SCH (17:00)
[2021-12-13 17:55] LABS: Hematocrit 30.6 % (35.3-44.9)
[2021-12-13 17:56] LABS: Hemoglobin 9.6 g/dL (11.5-15.4)
[2021-12-13] MEDS ORDERED: Acetaminophen IV 1,000 MG/100 ML BAG IVPB ONE (20:55)
[2021-12-14 01:36] LABS: Hematocrit 25.3 % (35.3-44.9); Hemoglobin 8.1 g/dL (11.5-15.4); Mean Corpuscular Hemoglobin 30.2 pg (28.0-33.3); Mean Corpuscular Volume 94.4 fL (83.0-100.0); Mean Platelet Volume 9.7 fL (9.4-12.4); Platelet Count 194 K/mcL (140-400); Red Blood Count 2.68 M/mcL (3.82-4.97); Red Cell Distribution Width 15.9 % (11.5-14.5); White Blood Count 5.2 K/mcL (4.3-11.1)
[2021-12-14 01:57] LABS: Calcium 8.8 mg/dL (8.6-10.3); Potassium 3.4 mEq/L (3.5-5.1)
[2021-12-14] MEDS: Levalbuterol Neb 1.25 MG/3 ML IH SCH ×4 (04:22→22:00)
[2021-12-14 05:18] LABS: Hematocrit 29.6 % (35.3-44.9); Hemoglobin 8.9 g/dL (11.5-15.4)
[2021-12-14] MEDS ORDERED: Acetaminophen IV 1,000 MG/100 ML BAG IVPB ONE (06:28)
[2021-12-14] MEDS: Insulin LISPRO 300 UNITS/3 ML VIAL SUBQ SCH ×4 (07:39→21:38)
[2021-12-14 08:17] LABS: Hematocrit 29.6 % (35.3-44.9); Hemoglobin 9.3 g/dL (11.5-15.4)
[2021-12-14] MEDS ORDERED: Morphine Sulfate Immed Rel 15 MG TABLET PO SCH (09:00)
[2021-12-14] MEDS: Budesonide/Formoterol 160/4.5 1 PUFF INH IH SCH ×2 (09:54→22:00)
[2021-12-14] MEDS ORDERED: *HR* OxyCODONE/APAP 5/325 TABLET PO ONE (09:56)
[2021-12-14] MEDS: Metoprolol XL (24 HR) Succ 50 MG TAB.ER.24H PO SCH ×2 (10:14→20:58)
[2021-12-14] MEDS: Aspirin Enteric Coated 81 MG Tablet PO SCH (10:14)
[2021-12-14] MEDS: Sacubitril/Valsartan 49/51 MG 1 TABLET PO SCH ×2 (10:14→20:58)
[2021-12-14] MEDS: Torsemide 20 MG TABLET PO SCH ×2 (10:17→18:21)
[2021-12-14] MEDS: cefTRIAXone 1,000 MG in 0.9 % Sodium Chloride Mini Bag 100 ML IVPB SCH (10:18)
[2021-12-14 10:28] LABS: Hematocrit 27.6 % (35.3-44.9); Hemoglobin 8.6 g/dL (11.5-15.4)
[2021-12-14] MEDS: *HR* Rivaroxaban 15 MG TABLET PO SCH (18:21)
[2021-12-14] MEDS: Morphine Sulfate ER (12 HR) 15 MG TABLET.ER PO SCH (18:21)
[2021-12-14] MEDS: Ondansetron 4 MG/2 ML VIAL IVP PRN (21:02)
[2021-12-14] MEDS: Acetaminophen 325 MG TABLET PO PRN (22:12)
[2021-12-15] MEDS: Levalbuterol Neb 1.25 MG/3 ML IH SCH ×4 (04:04→22:13)
[2021-12-15] MEDS: Morphine Sulfate ER (12 HR) 15 MG TABLET.ER PO SCH ×2 (05:24→17:50)
[2021-12-15] MEDS: Insulin LISPRO 300 UNITS/3 ML VIAL SUBQ SCH ×4 (07:37→20:33)
[2021-12-15 09:29] LABS: Hemoglobin 8.6 g/dL (11.5-15.4); Mean Corpuscular HGB Conc 30.7 g/dL (31.6-35.5); Mean Corpuscular Volume 97.6 fL (83.0-100.0); Mean Platelet Volume 9.9 fL (9.4-12.4); Platelet Count 213 K/mcL (140-400); Red Blood Count 2.87 M/mcL (3.82-4.97); Red Cell Distribution Width 15.9 % (11.5-14.5); White Blood Count 6.4 K/mcL (4.3-11.1)
[2021-12-15 09:54] LABS: Calcium 8.9 mg/dL (8.6-10.3); Potassium 3.2 mEq/L (3.5-5.1)
[2021-12-15] MEDS: Metoprolol XL (24 HR) Succ 50 MG TAB.ER.24H PO SCH ×2 (10:01→20:29)
[2021-12-15] MEDS: Sacubitril/Valsartan 49/51 MG 1 TABLET PO SCH ×2 (10:01→20:30)
[2021-12-15] MEDS: Torsemide 20 MG TABLET PO SCH ×2 (10:23→17:50)
[2021-12-15] MEDS: Aspirin Enteric Coated 81 MG Tablet PO SCH (10:23)
[2021-12-15] MEDS: *HR* Digoxin 0.125 MG TABLET PO SCH (10:24)
[2021-12-15] MEDS: calcitrioL 0.25 MCG CAPSULE PO SCH (10:24)
[2021-12-15] MEDS: cefTRIAXone 1,000 MG in 0.9 % Sodium Chloride Mini Bag 100 ML IVPB SCH (10:25)
[2021-12-15] MEDS: Budesonide/Formoterol 160/4.5 1 PUFF INH IH SCH ×2 (10:56→22:13)
[2021-12-15] MEDS: DAPTOmycin 500 MG in 0.9 % Sodium Chloride 100 ML IVPB SCH (12:20)
[2021-12-15] MEDS: *HR* Rivaroxaban 15 MG TABLET PO SCH (17:50)
[2021-12-15] MEDS: Magnesium Oxide 400 MG TABLET PO SCH (20:29)
[2021-12-16] MEDS: Levalbuterol Neb 1.25 MG/3 ML IH SCH ×4 (03:50→20:43)
[2021-12-16] MEDS: Morphine Sulfate ER (12 HR) 15 MG TABLET.ER PO SCH ×3 (04:45→18:25)
[2021-12-16] MEDS: Insulin LISPRO 300 UNITS/3 ML VIAL SUBQ SCH ×4 (07:22→21:06)
[2021-12-16] MEDS ORDERED: Spironolactone 25 MG TABLET PO SCH (09:00)
[2021-12-16] MEDS: Budesonide/Formoterol 160/4.5 1 PUFF INH IH SCH ×2 (09:01→20:43)
[2021-12-16] MEDS: Sacubitril/Valsartan 49/51 MG 1 TABLET PO SCH ×2 (09:44→21:05)
[2021-12-16] MEDS: Mirabegron [Myrbetriq] 50 MG Tab.Er.24h PO SCH (09:45)
[2021-12-16] MEDS: Metoprolol XL (24 HR) Succ 50 MG TAB.ER.24H PO SCH ×2 (09:45→21:06)
[2021-12-16] MEDS: Loratadine 10 MG TABLET PO SCH (10:00)
[2021-12-16] MEDS: Magnesium Oxide 400 MG TABLET PO SCH ×2 (10:00→21:06)
[2021-12-16] MEDS: calcitrioL 0.25 MCG CAPSULE PO SCH (10:00)
[2021-12-16] MEDS: Aspirin Enteric Coated 81 MG Tablet PO SCH (10:00)
[2021-12-16] MEDS: Vitamin B Complex/Vit C/Vit E 1 EACH TABLET PO SCH (10:00)
[2021-12-16] MEDS: Cholecalciferol (D-3) 1,000 UNIT (25MCG) TABLET PO SCH (10:01)
[2021-12-16] MEDS: Torsemide 20 MG TABLET PO SCH ×2 (10:07→17:01)
[2021-12-16 10:12] LABS: Basophils % 0.7 %; Eosinophils # 0.1 K/mcL (0.0-0.6); Eosinophils % 1.7 %; Hemoglobin 8.5 g/dL (11.5-15.4); Immature Granulocytes % 1.2 % (0-4); Lymphocytes % 16.7 %; Mean Corpuscular HGB Conc 30.4 g/dL (31.6-35.5); Mean Corpuscular Hemoglobin 29.5 pg (28.0-33.3); Mean Corpuscular Volume 97.2 fL (83.0-100.0); Mean Platelet Volume 9.9 fL (9.4-12.4); Monocytes # 0.5 K/mcL (0.0-1.3); Monocytes % 7.7 %; Neutrophils # 4.2 K/mcL (1.6-8.9); Platelet Count 204 K/mcL (140-400); Red Blood Count 2.88 M/mcL (3.82-4.97); Red Cell Distribution Width 15.8 % (11.5-14.5); White Blood Count 5.9 K/mcL (4.3-11.1)
[2021-12-16 10:32] LABS: Albumin 3.3 g/dL (3.5-5.7); Albumin/Globulin Ratio 1.2 (1.1-2.2); Bilirubin,Total 0.5 mg/dL (0.3-1.0); Calcium 9.1 mg/dL (8.6-10.3); Globulin 2.7 g/dL (2.4-3.5); Potassium 3.5 mEq/L (3.5-5.1)
[2021-12-16] MEDS: Ondansetron 4 MG/2 ML VIAL IVP PRN (11:51)
[2021-12-16] MEDS: *HR* Rivaroxaban 15 MG TABLET PO SCH (17:02)
[2021-12-17 03:14] LABS: Basophils % 0.8 %; Eosinophils % 1.8 %; Hematocrit 28.7 % (35.3-44.9); Hemoglobin 8.8 g/dL (11.5-15.4); Immature Granulocytes % 0.8 % (0-4); Lymphocytes # 0.8 K/mcL (0.6-4.6); Lymphocytes % 13.1 %; Mean Corpuscular HGB Conc 30.7 g/dL (31.6-35.5); Mean Corpuscular Hemoglobin 29.8 pg (28.0-33.3); Mean Corpuscular Volume 97.3 fL (83.0-100.0); Mean Platelet Volume 10.2 fL (9.4-12.4); Monocytes # 0.4 K/mcL (0.0-1.3); Monocytes % 6.9 %; Neutrophils # 4.8 K/mcL (1.6-8.9); Platelet Count 210 K/mcL (140-400); Red Blood Count 2.95 M/mcL (3.82-4.97); Red Cell Distribution Width 15.9 % (11.5-14.5); Segmented Neutrophils % 76.6 %; White Blood Count 6.2 K/mcL (4.3-11.1)
[2021-12-17 03:15] LABS: Basophils # 0.1 K/mcL (0.0-0.2); Eosinophils # 0.1 K/mcL (0.0-0.6)
[2021-12-17 03:30] LABS: Albumin 3.5 g/dL (3.5-5.7); Albumin/Globulin Ratio 1.3 (1.1-2.2); Bilirubin,Total 0.5 mg/dL (0.3-1.0); Calcium 9.7 mg/dL (8.6-10.3); Globulin 2.8 g/dL (2.4-3.5); Potassium 3.8 mEq/L (3.5-5.1); Total Protein 6.3 g/dL (6.4-8.9)
[2021-12-17] MEDS: Levalbuterol Neb 1.25 MG/3 ML IH SCH ×2 (04:24→10:23)
[2021-12-17] MEDS: Morphine Sulfate ER (12 HR) 15 MG TABLET.ER PO SCH (05:23)
[2021-12-17 07:40] VITALS: TEMP 98.2
[2021-12-17] MEDS: Mirabegron [Myrbetriq] 50 MG Tab.Er.24h PO SCH (07:50)
[2021-12-17] MEDS ORDERED: *HR* OxyCODONE/APAP 5/325 TABLET PO PRN (08:01)
[2021-12-17] MEDS ORDERED: Metoprolol XL (24 HR) Succ 50 MG TAB.ER.24H PO SCH (09:00)
[2021-12-17] MEDS ORDERED: Sacubitril/Valsartan 24/26 MG 1 TABLET PO SCH (09:00)
[2021-12-17] MEDS: Insulin LISPRO 300 UNITS/3 ML VIAL SUBQ SCH ×3 (09:40→16:43)
[2021-12-17] MEDS: DAPTOmycin 500 MG in 0.9 % Sodium Chloride 100 ML IVPB SCH (09:40)
[2021-12-17] MEDS: Budesonide/Formoterol 160/4.5 1 PUFF INH IH SCH (10:21)
[2021-12-17] MEDS ORDERED: Levalbuterol Neb 1.25 MG/3 ML IH PRN (10:21)
[2021-12-17] MEDS: Cholecalciferol (D-3) 1,000 UNIT (25MCG) TABLET PO SCH (10:28)
[2021-12-17] MEDS: calcitrioL 0.25 MCG CAPSULE PO SCH (10:29)
[2021-12-17] MEDS: *HR* Digoxin 0.125 MG TABLET PO SCH (10:30)
[2021-12-17] MEDS: Vitamin B Complex/Vit C/Vit E 1 EACH TABLET PO SCH (10:31)
[2021-12-17] MEDS: Aspirin Enteric Coated 81 MG Tablet PO SCH (10:32)
[2021-12-17] MEDS: Loratadine 10 MG TABLET PO SCH (10:32)
[2021-12-17] MEDS: Torsemide 20 MG TABLET PO SCH ×2 (11:04→17:03)
[2021-12-17] MEDS: Magnesium Oxide 400 MG TABLET PO SCH (11:07)
[2021-12-17 12:30] LABS: Influenza A PCR Negative (Negative); Influenza B PCR Negative (Negative); Resp. Syncytial Virus PCR Negative (Negative); SARS-CoV-2 by PCR (In House) Negative (Negative)
[2021-12-17 15:06] VITALS: BP 103/66; PULSE 87; O2SAT 96
[2021-12-17 15:06] LABS: Alpha 2 Globulin (PEP) 0.86 g/dL (0.48-1.05); Beta Globulin (PEP) 0.68 g/dL (0.48-1.10)
[2021-12-17 15:26] LABS: IFE Reflexed NOT DONE
[2021-12-17] MEDS: *HR* Rivaroxaban 15 MG TABLET PO SCH (16:43)
== END 2021-12-17 19:55 | DRG 291 ==
LOC: 3BNU → SUATTDRO 12-13 02:27 → 3BNU 12-16 16:56
PROVIDERS: ADMIT Internal Medicine; ATTEND Nurse Practitioner